=== PATIENT | female | born 1950 | race Asian ===

== ENCOUNTER 2016-10-01 12:22 | Emergency (ER) | payer MEDICARE, OTHER ==
[2016-10-01] MEDS ORDERED: TETANUS,DIPHTHERIA TOXOID SYRINGE IM V ONE (13:33)
== END 2016-10-01 13:45 | disposition home or self-care (01) ==
LOC: ED 12:22
DX: S61.213A Laceration without foreign body of left middle finger without damage to nail, initial encounter (principal); I10 Essential (primary) hypertension; Z23 Encounter for immunization; W26.0XXA Contact with knife, initial encounter; Y92.69 Other specified industrial and construction area as the place of occurrence of the external cause; Y99.0 Civilian activity done for income or pay

== ENCOUNTER 2016-11-09 13:38 | Emergency (ER) | payer OTHER, MEDICARE | END 2016-11-09 14:21 | disposition home or self-care (01) | LOC: ED 13:38 | DX: S61.210A Laceration without foreign body of right index finger without damage to nail, initial encounter (principal); S61.212A Laceration without foreign body of right middle finger without damage to nail, initial encounter; I10 Essential (primary) hypertension; G51.0 Bell's palsy; W27.8XXA Contact with other nonpowered hand tool, initial encounter; Y93.G1 Activity, food preparation and clean up; Y92.89 Other specified places as the place of occurrence of the external cause; Y99.0 Civilian activity done for income or pay ==